=== PATIENT | female | born 1975 | race Caucasian/White ===

== ENCOUNTER → 2022-05-19 14:19 | Outpatient (BNVA) | payer BC, MEDICAID, SELFPAY | PROVIDERS: Visit Provider Podiatrist Foot & Ankle Surgery | DX: M92.62 Juvenile osteochondrosis of tarsus, left ankle (principal) | CPT/HCPCS: 73610; 73630 ==

== ENCOUNTER → 2022-09-16 08:30 | Outpatient (BNVA) | payer BC, MEDICAID, SELFPAY | PROVIDERS: PCP Nurse Practitioner; Visit Provider Podiatrist Foot & Ankle Surgery | DX: M92.62 Juvenile osteochondrosis of tarsus, left ankle (principal); M72.2 Plantar fascial fibromatosis | CPT/HCPCS: 73630 ==

== ENCOUNTER 2022-09-16 11:23 | Outpatient (CLI) | payer BC, MEDICAID, SELFPAY | END 2022-09-16 11:24 | disposition home or self-care (01) | LOC: SPT 11:23 | PROVIDERS: PCP Nurse Practitioner; Visit Provider Podiatrist Foot & Ankle Surgery | DX: Z46.89 Encounter for fitting and adjustment of other specified devices (principal); M79.672 Pain in left foot; M72.2 Plantar fascial fibromatosis | CPT/HCPCS: 97760; L4361 ==

== ENCOUNTER 2022-10-22 10:50 | Outpatient (CLI) | payer BC, MEDICAID, SELFPAY ==
--- NOTE | 2022-10-22 | US_ITS ---
WS: [id number] BILATERAL 3D TOMOSYNTHESIS DIGITAL DIAGNOSTIC MAMMOGRAPHY WITH CAD CLINICAL INFORMATION: RT MASS HISTORY: RIGHT breast lumps along the midline sternum COMPARISON: None available TECHNIQUE: Bilateral CC, MLO, and ML views. FINDINGS: Scattered fibroglandular densities bilaterally. Palpable marker appears along the upper and lower pos terior chest wall sternum. No definite underlying mammographic parenchymal abnormalities. Ultrasound described below Unremarkable LEFT breast. A few incidental punctate calcifications. ULTRASOUND BREAST RIGHT TECHNIQUE: Ultrasound right breast focused area of concern. CLINICAL INFORMATION: RIGHT LUMP ON CHEST FINDINGS: Ultrasound RIGHT breast 2:00 position 10 cm from the nipple in the area of concern. Normal underlying parenchymal tissue. No cystic or solid lesions. Normal underlying sternum and ribs in this location. TECHNIQUE: Ultrasound right breast focused area of concern. CLINICAL INFORMATION: RIGHT LUMP ON CHEST FINDINGS: Ultrasound chest along the inferior sternum in the area of concern. Normal underlying bony sternum. N o cystic or solid lesions. No suspicious findings. US/US chest [id number] IMPRESSION: No suspicious findings ULTRASOUND CHEST IMPRESSION: BI-RADS: 2-Benign FOLLOW UP: 1 Year Follow-up Recommend return to annual screening mammography.
--- NOTE | 2022-10-22 11:11 | MM_ITS ---
WS: [id number] BILATERAL 3D TOMOSYNTHESIS DIGITAL DIAGNOSTIC MAMMOGRAPHY WITH CAD CLINICAL INFORMATION: RT MASS HISTORY: RIGHT breast lumps along the midline sternum COMPARISON: None available TECHNIQUE: Bilateral CC, MLO, and ML views. FINDINGS: Scattered fibroglandular densities bilaterally. Palpable marker appears along the upper and lower pos terior chest wall sternum. No definite underlying mammographic parenchymal abnormalities. Ultrasound described below Unremarkable LEFT breast. A few incidental punctate calcifications. ULTRASOUND BREAST RIGHT TECHNIQUE: Ultrasound right breast focused area of concern. CLINICAL INFORMATION: RIGHT LUMP ON CHEST FINDINGS: Ultrasound RIGHT breast 2:00 position 10 cm from the nipple in the area of concern. Normal underlying parenchymal tissue. No cystic or solid lesions. Normal underlying sternum and ribs in this location. TECHNIQUE: Ultrasound right breast focused area of concern. CLINICAL INFORMATION: RIGHT LUMP ON CHEST FINDINGS: Ultrasound chest along the inferior sternum in the area of concern. Normal underlying bony sternum. N o cystic or solid lesions. No suspicious findings. MM/[place] [id number] IMPRESSION: No suspicious findings ULTRASOUND CHEST IMPRESSION: BI-RADS: 2-Benign FOLLOW UP: 1 Year Follow-up Recommend return to annual screening mammography.
== END 2022-10-22 10:51 | disposition home or self-care (01) ==
PROVIDERS: PCP Nurse Practitioner; Visit Provider Nurse Practitioner
DX: N63.12 Unspecified lump in the right breast, upper inner quadrant (principal)
CPT/HCPCS: 76604; 76642; 77062; G0279

== ENCOUNTER 2022-10-23 15:19 | Outpatient (CLI) | payer BC, MEDICAID, SELFPAY ==
[2022-10-26 13:54] LABS: Lymes IGG WB <0.90 index
[2022-10-28 21:14] LABS: Bartonella Henselae IgG AB Negative
[2023-06-24 15:39] LABS: Ehrlichia Ab Igg <1:64
== END 2022-10-23 15:20 | disposition home or self-care (01) ==
LOC: LAB 15:21
PROVIDERS: PCP Nurse Practitioner; Visit Provider Student in an Organized Health Care Education/Training Program
DX: H46.9 Unspecified optic neuritis (principal)
CPT/HCPCS: 86611; 86617; 86666

== ENCOUNTER 2022-11-13 07:50 | Outpatient (CLI) | payer BC, MEDICAID, SELFPAY ==
--- NOTE | 2022-11-13 08:07 | MR_ITS ---
WS: [id number] MRI NECK WITH CONTRAST TECHNIQUE: Noncontrast axial T1, axial T2 FSE fat sat, coronal T2 fat sat, coronal T1, coronal T1 fat sat, sagittal T2 fat sat, plus contrast enhanced coronal, sagittal, and axial T1 fat sat images obta ined. CLINICAL INFORMATION: Optic neuritis COMPARISON: None. FINDINGS: Normal optic chiasm and pituitary infundibulum. No optic nerve edema. No abnormal optic nerve enhance ment. No evidence of optic neuritis. Normal rectus muscles. Normal cavernous sinuses and Meckel's cave. No hemosiderin on susceptibly weighted images. No restric alden diffusion to suggest acute ischemia. Mild small vessel changes. Mild parenchymal volume loss. No extra-axial fluid collections. No evidenc e of mass or mass effect. Normal posterior fossa. Normal vascular flow voids at the skull base. No ex tra-axial fluid collections. Paranasal sinusitis with fluid and mucosal thickening in the paranasal sinuses. Air-fluid level in th e LEFT maxillary sinus. Inspissated secretions in the hypoplastic RIGHT maxillary sinus. Mastoid air cells are well aerated. No abnormal gadolinium enhancement. Normal posterior nasopharynx. Normal parapharyngeal fat. Normal d ural venous sinuses. MR/MR orbit face neck wo/w* [id number] IMPRESSION: 1. Normal optic chiasm and pituitary infundibulum. 2. Optic nerves are normal in appearance. No evidence of optic neuritis. No op tic nerve edema. 3. Normal visualized rectus muscles. 4. No restricted diffusion to suggest acute ischemia. 5. Mild small vessel changes with mild parenchymal volume loss. 6. Diffuse paranasal sinusitis.
[2022-11-13] MEDS: gadobenate dimeglumine 20 mL vial IV (09:20)
== END 2022-11-13 07:51 | disposition home or self-care (01) ==
PROVIDERS: PCP Nurse Practitioner; Visit Provider Student in an Organized Health Care Education/Training Program
DX: H47.011 Ischemic optic neuropathy, right eye (principal); I67.9 Cerebrovascular disease, unspecified; J32.8 Other chronic sinusitis
CPT/HCPCS: 70543; A9577

== ENCOUNTER 2023-05-04 11:42 | Outpatient (CLI) | payer BC, MEDICAID, SELFPAY | END 2023-05-04 11:43 | disposition home or self-care (01) | PROVIDERS: PCP Nurse Practitioner; Visit Provider Nurse Practitioner | DX: J45.30 Mild persistent asthma, uncomplicated (principal) | CPT/HCPCS: 94010; 94726; 94729 ==

== ENCOUNTER 2023-05-05 20:00 | Outpatient (CLI) | payer BC, MEDICAID, SELFPAY | END 2023-05-05 20:01 | disposition home or self-care (01) | LOC: SLEEP 05-06 05:47 | PROVIDERS: PCP Nurse Practitioner; Visit Provider Nurse Practitioner | DX: G47.33 Obstructive sleep apnea (adult) (pediatric) (principal) | CPT/HCPCS: 95810 ==

== ENCOUNTER 2024-03-08 15:43 | Outpatient (CLI) | payer BC, MEDICAID, SELFPAY ==
--- NOTE | 2024-03-08 15:54 | MR_ITS ---
WS: [id number] MRI BRAIN WITHOUT CONTRAST HISTORY: G62.9 Polyneuropathy, unspecified COMPARISON: 11/13/2022 TECHNIQUE: Diffusion imaging, multiplanar T1, T2 and FLAIR imaging obtained. No evidence for acute infarct or hemorrhage. Elder-white matter differentiation is normal. Increased T2 signal bilaterally within the gregory but greatest on the LEFT. This can be seen with small vessel disease. There are a few additional very subtle areas of increased subcortical white matter d isease in the frontoparietal lobes. No prior infarct and no hemorrhage. Small arachnoid cysts in the anterior middle cranial fossa is are stable. No hippocampal atrophy. Ventricles and extra-axial spaces are normal. No inferior displacement of cerebellar tonsils. The sella turcica and pituitary gland are unremarkabl e. Dural venous sinuses and [place] demonstrate no abnormality on this unenhanced studies. Paranasal sinuses: Mild mucoperiosteal thickening in the RIGHT maxillary sinus. Mild bilateral ethmoi d air cell disease. Mastoid air cells: Normal. Calvarium and scalp: Intact. MR/MR head wo con* [id number] IMPRESSION: 1. No acute infarct or hemorrhage. 2. Mild bilateral small vessel ischemic disease in the gregory. 3. Minimal bilateral frontoparietal lobe small vessel disease. No infarct. 4. Mucoperiosteal disease in the RIGHT maxillary sinus.
== END 2024-03-08 15:44 | disposition home or self-care (01) ==
LOC: RAD 15:44
PROVIDERS: PCP Nurse Practitioner; Visit Provider Nurse Practitioner
DX: G44.52 New daily persistent headache (NDPH) (principal); R53.1 Weakness; J32.0 Chronic maxillary sinusitis
CPT/HCPCS: 70551

== ENCOUNTER 2024-05-09 12:45 | Outpatient (CLI) | payer BC, MEDICAID, SELFPAY ==
--- NOTE | 2024-05-09 13:00 | USCV_ITS ---
MerlineJenni simonn Age: 49 Gender: F : 1975 Exam Date: 05/09/2024 12:53 Ordering Phys: Theron Saunders MD Technologist: [employer] Exam Location: [facility] [place] Indication: BALANCE DIFFICULTy Risk Factors: Previous Vascular Surgery: Right Brachial BP: / Left Brachial BP: / Right Left Velocity (cm/s) Spectral Plaque Velocity (cm/s) Spectral Plaque Syst/Diast Broadening Syst/Diast Broadening 109.60/20.20 Prox CCA 96.30 / 20.30 117.40/17.60 Mid CCA 84.10 / 20.20 92.80/ 20.20 Distal CCA 85.20 / 24.50 65.10/ 22.80 Prox ICA 52.30 / 21.80 69.70/ 26.30 Mid ICA 61.40 / 23.70 63.30/ 25.80 Distal ICA 62.00 / 25.70 61.10 ECA 66.10 0.70 ICA/CCA 0.60 Antegrade Vertebral Antegrade 39.60/ 11.40 cm/s 51.00/ 18.80 cm/s Tri Subclavian Tri 122.4 89.30 0 FINDINGS Comparison: none available. No significant elevation of systolic or diastolic velocities. Waveforms are normal. No significant amount of calcified plaque or intimal thickening identified. CONCLUSIONS Normal carotid doppler ultrasound. Dr. Naty Smith DO (Electronically Signed) Final Date: 09 May 2024 13:27 S
== END 2024-05-09 12:46 | disposition home or self-care (01) ==
LOC: RAD 12:46
PROVIDERS: PCP Nurse Practitioner; Visit Provider Psychiatry & Neurology Neurology
DX: R29.818 Other symptoms and signs involving the nervous system (principal)
CPT/HCPCS: 93880

== ENCOUNTER 2024-09-14 05:00 | Outpatient (RCR) | payer OTHER, BC, MEDICAID, SELFPAY | END 2024-10-14 23:59 | disposition home or self-care (01) | LOC: GPT 05:00 | PROVIDERS: Visit Provider Nurse Practitioner Family | DX: H81.12 Benign paroxysmal vertigo, left ear (principal) | CPT/HCPCS: 97161 ==

== ENCOUNTER 2024-11-10 12:47 | Outpatient (CLI) | payer OTHER, BC, MEDICAID, SELFPAY ==
--- NOTE | 2024-11-10 13:00 | MR_ITS ---
WS: [id number] MRI THORACIC SPINE WITHOUT CONTRAST TECHNIQUE: Sagittal T1, T2 and STIR imaging. Axial T2 imaging. Noncontrast imaging obtained. CLINICAL INFORMATION: M54.6 - Pain in thoracic spine COMPARISON: None. FINDINGS: Mild thoracic curve. Mild thoracic kyphosis. Anterior hypertrophic changes. No acute compression. No high-grade central canal stenosis. Cord signal is normal. Tiny disc protrusions at T5-T6 and T6-T7. Shallow RIGHT paracentral protrusion T9-T10 with slight contact of the RIGHT ventral thoracic cord. Moderate facet arthropathy lower thoracic spine. Normal adrenal glands. Tiny esophageal hiatal hernia. Normal caliber descending thoracic aorta. MR/MR thoracic spin wo con* [id number] IMPRESSION: 1. Shallow RIGHT paracentral protrusion T9-T10 with slight contact of the RIG HT ventral thoracic cord. Spinal canal remains patent. 2. Tiny disc protrusions at T5-T6 and T6-T7. 3. Cord signal is normal. 4. No other acute findings.
--- NOTE | 2024-11-10 13:45 | MR_ITS ---
WS: [email or web address] MRI LUMBAR SPINE WITH CONTRAST TECHNIQUE: Sagittal T1, T2 and STIR imaging. Axial T1 and T2 imaging. Post gadolinium imaging was obtained. CLINICAL INFORMATION: M54.50 - Low back pain, unspecified COMPARISON: None. FINDINGS: Mild lumbar curve. No acute compression. Disc desiccation worse at L3-L4 and L4- L5. Prior laminectomy defects L3-L4. L1-L2: Narrowing of the RIGHT subarticular recess. Mild facet arthropathy. L2-L3: Mild annular bulging. Moderate facet arthropathy. Spinal canal and foramen are patent. L3-L4: Laminectomy defects. Shallow central protrusion. Impingement subarticular recess bilaterally. Disc desiccation. Mild LEFT foraminal narrowing. L4-L5: Mild disc bulge with endplate ridging. Impingement of the subarticular recess bilaterally and traversing L5 nerve roots. Moderate facet arthropathy. LEFT eccentric disc bulging encroaches on the far exiting LEFT L4 nerve root. Mild facet arthropathy. Mild central canal stenosis. L5-S1: Mild annular bulging. Impingement LEFT S1 nerve root. Moderate facet arthropathy. LEFT eccentric disc bulging contacts the far exiting LEFT L5 nerve root. Tiny LEFT renal cyst MR/MR lumbar spine wo/w con [id number] IMPRESSION: 1. Mild lumbar curve. No acute compression. Prior laminectomy defects L3-4. 2. Central disc protrusion L3-4 impinges the traversing L4 nerve roots bilater ally with mild narrowing of the thecal sac. 3. Mild central canal stenosis L4-5 with impingement on the traversing LEFT gr eater than RIGHT L5 nerve roots. 4. Disc osteophyte complex L5-S1 impinges the traversing LEFT S1 nerve root in the subarticular recess. Recommend correlation LEFT S1 nerve root symptoms. 5. Disc desiccation worse at L3-L4 and L4-L5. 6. Mild foraminal narrowing described above.
--- NOTE | 2024-11-10 14:30 | MR_ITS ---
WS: [id number] MRI CERVICAL SPINE NONCONTRAST TECHNIQUE: Sagittal T1, T2 and STIR imaging. Axial T2, gradient, and fiesta imaging. CLINICAL INFORMATION: M54.2 - Cervicalgia COMPARISON: None. FINDINGS: Straightening of the normal cervical lordosis. Mild disc bulging worse at C5-C6 and C6-C7. Edema within the RIGHT C3-4 facets with a small facet effusion compatible with synovitis. This is likely inflammatory or degenerative. No periarticular fluid collections. Moderate facet arthropathy C2-C3: Mild facet arthropathy. Spinal canal and foramen are patent. C3-C4: Slight anterolisthesis. Mild facet arthropathy. Mild RIGHT foraminal narrowing. C4-C5: Mild disc bulging. Moderate facet arthropathy. Mild LEFT foraminal narrowing. C5-C6: Shallow central protrusion. Slight effacement of the ventral thecal sac. Moderate facet arthropathy. Mild LEFT greater than RIGHT foraminal narrowing. C6-C7: Shallow central protrusion. Slight indentation on the cervical cord. Mild LEFT bony foraminal narrowing. Spinal canal and RIGHT foramen are patent. Mild facet arthropathy. C7-T1: Mild LEFT bony foraminal narrowing. Spinal canal is patent. T1-T2: Mild disc bulging. Mild RIGHT foraminal narrowing. Mild LEFT C5-C6 and LEFT C6-7 foraminal narrowing. Visualized brain stem structures: Normal. Prevertebral soft tissues: Normal. MR/MR cervical spin wo con* [id number] IMPRESSION: 1. Straightening of the normal cervical lordosis. 2. Small central protrusions at C5-C6 and C6-C7 with slight contact of the cer vical cord and mild central canal stenosis. This is worse at C6-7 with slight i ndentation on the cervical cord. Small annular tear at C6-7. 3. Edema within the RIGHT C3-4 articulating facets with a small facet effusion compatible with synovitis. This is likely inflammatory or degenerative. No flu id collections. 4. Mild LEFT C5-6, LEFT C6-7, and LEFT C7-T1 foraminal narrowing.
[2024-11-10] MEDS: gadobenate dimeglumine 20 mL vial 19 ML IV (14:32)
== END 2024-11-10 12:48 | disposition home or self-care (01) ==
PROVIDERS: PCP Nurse Practitioner; Visit Provider Psychiatry & Neurology Neurology
DX: M48.02 Spinal stenosis, cervical region (principal); M79.604 Pain in right leg; M79.605 Pain in left leg; R20.0 Anesthesia of skin; R20.2 Paresthesia of skin; M50.222 Other cervical disc displacement at C5-C6 level; M50.223 Other cervical disc displacement at C6-C7 level; M50.323 Other cervical disc degeneration at C6-C7 level; R60.0 Localized edema; R93.7 Abnormal findings on diagnostic imaging of other parts of musculoskeletal system; M48.03 Spinal stenosis, cervicothoracic region; M50.322 Other cervical disc degeneration at C5-C6 level; M47.892 Other spondylosis, cervical region; M50.321 Other cervical disc degeneration at C4-C5 level; M51.34 Other intervertebral disc degeneration, thoracic region; M43.8X4 Other specified deforming dorsopathies, thoracic region; M47.894 Other spondylosis, thoracic region; M43.8X6 Other specified deforming dorsopathies, lumbar region; M96.89 Other intraoperative and postprocedural complications and disorders of the musculoskeletal system; M51.26 Other intervertebral disc displacement, lumbar region; M48.061 Spinal stenosis, lumbar region without neurogenic claudication; M25.78 Osteophyte, vertebrae; M51.369 Other intervertebral disc degeneration, lumbar region without mention of lumbar back pain or lower extremity pain; M47.896 Other spondylosis, lumbar region; M51.379 Other intervertebral disc degeneration, lumbosacral region without mention of lumbar back pain or lower extremity pain; M47.897 Other spondylosis, lumbosacral region
CPT/HCPCS: 72141; 72146; 72158

== ENCOUNTER → 2024-12-07 14:48 | Outpatient (BNVA) | payer OTHER, BC, MEDICAID, SELFPAY | PROVIDERS: PCP Nurse Practitioner; Visit Provider Orthopaedic Surgery | DX: M48.02 Spinal stenosis, cervical region (principal); M54.2 Cervicalgia; M54.9 Dorsalgia, unspecified; M96.1 Postlaminectomy syndrome, not elsewhere classified | CPT/HCPCS: 72050; 72110 ==